=== PATIENT | female | born 1985 | race Caucasian/White ===

== ENCOUNTER 2018-01-06 17:50 | Observation (INO) | payer MEDICAID ==
[2018-01-06 19:36] VITALS: BP_SYST 108
== END 2018-01-06 19:10 | disposition home or self-care (01) ==
LOC: SPU 17:50
PROVIDERS: ADMIT Obstetrics & Gynecology; ATTEND Obstetrics & Gynecology
DX: O62.9 Abnormality of forces of labor, unspecified (principal); Z3A.38 38 weeks gestation of pregnancy
CPT/HCPCS: 59025; 81002; G0378

== ENCOUNTER 2018-01-10 04:51 | Inpatient (IN) | payer MEDICAID ==
[~2018-01-10] VITALS: Ht 160 cm; Wt 75.7 kg
[2018-01-10] MEDS: METHYLERGONOVINE MALEATE 0.2 MG TABLET PO SCH ×2 (04:00→21:00)
[2018-01-10] MEDS ORDERED: OXYTOCIN/0.9 % SODIUM CHLORIDE 1,000 ML IV SCH (05:49)
[2018-01-10] MEDS ORDERED: LR 1,000 ML IV SCH (05:49)
[2018-01-10] MEDS ORDERED: AMPICILLIN SODIUM 2 GM in NS 100 ML IV ONE (06:00)
[2018-01-10] MEDS ORDERED: NALBUPHINE HCL 10 MG/ML AMP IVP PRN (06:00)
[2018-01-10] MEDS ORDERED: NALBUPHINE HCL 10 MG/ML AMP IM PRN (06:00)
[2018-01-10] MEDS ORDERED: AMPICILLIN SODIUM 2 GM VIAL ONE (06:26)
[2018-01-10] MEDS ORDERED: MINERAL OIL 30 ML UDC PO ONE (10:00)
[2018-01-10] MEDS ORDERED: LIDOCAINE PF 1% 30ML(POUR BTL) INJ ONE (10:00)
[2018-01-10 10:10] LABS: BASOPHILS # (AUTO) 0.1 K/uL (0.0-0.2); BASOPHILS % (AUTO) 0.6 % (0.0-2.0); EOSINOPHILS # (AUTO) 0.4 K/uL (0.0-0.4); EOSINOPHILS % (AUTO) 3.7 % (0.0-4.0); HEMATOCRIT 41.1 % (36-48); LYMPHOCYTES # (AUTO) 2.1 K/uL (1.0-5.5); LYMPHOCYTES % (AUTO) 18.4 % (20.5-51.5); MEAN CORPUSCULAR HEMOGLOBIN 33 pg (27-31); MEAN CORPUSCULAR HGB CONC 34 % (32-36); MEAN CORPUSCULAR VOLUME 96 fL (79.0-98.0); MONOCYTES # (AUTO) 0.8 K/uL (0.0-1.0); MONOCYTES % (AUTO) 6.7 % (1.7-9.3); NEUTROPHILS # (AUTO) 7.9 K/uL (1.8-7.7); NEUTROPHILS % (AUTO) 70.6 % (40.0-70.0); PLATELET COUNT (AUTO) 219 K/uL (130-430); RED CELL DISTRIBUTION WIDTH 11.9 % (9.0-15.0); WHITE BLOOD COUNT (AUTO) 11.3 K/uL (4.8-10.8)
[2018-01-10] MEDS: AMPICILLIN SODIUM 1 GM in NS 50 ML IV SCH ×2 (10:27→14:29)
[2018-01-10] MEDS ORDERED: FENT2mCg/mL-ROPIVA0.2%/NS EPID 150 ML EP SCH (11:00)
[2018-01-10] MEDS ORDERED: fentaNYL CITRATE/PF 100 MCG/2 ML AMP ONE (11:25)
[2018-01-10] MEDS ORDERED: ROPIVACAINE 0.2% 100 ML ONE (11:26)
[2018-01-10] MEDS ORDERED: OXYTOCIN 10 UNIT/ML VIAL ONE (14:31)
[2018-01-10] MEDS ORDERED: OXYTOCIN/0.9 % SODIUM CHLORIDE 1,000 ML IV ONE (15:04)
[2018-01-10] MEDS ORDERED: LANOLIN 7 GM OINT. TP PRN (15:15)
[2018-01-10] MEDS ORDERED: WITCH HAZEL LEAF 1 MED.PAD MED.PAD TP PRN (15:15)
[2018-01-10] MEDS ORDERED: DERMOPLAST SPRAY TP PRN (15:15)
[2018-01-10] MEDS ORDERED: ANUSOL 1 EA SUPP.RECT (PREPARATION H) RC PRN (15:15)
[2018-01-10] MEDS ORDERED: HYDROCORTISONE 0.5%, 28.35 GM TOPICAL CREAM TP PRN (15:15)
[2018-01-10] MEDS: OXYCODONE/ACETAMINOPHEN 5-325 TABLET PO PRN ×3 (16:15→20:52)
[2018-01-10] MEDS ORDERED: OXYTOCIN 30 UNIT in LR 1,000 ML IV SCH (17:00)
[2018-01-10] MEDS ORDERED: METHYLERGONOVINE MALEATE 0.2 MG TABLET ONE (17:02)
[2018-01-10] MEDS: IBUPROFEN 800 MG TABLET PO PRN ×2 (17:43→23:47)
[2018-01-10] MEDS ORDERED: TEMAZEPAM 15 MG CAPSULE PO PRN (21:00)
[2018-01-11] MEDS: OXYCODONE/ACETAMINOPHEN 5-325 TABLET PO PRN ×3 (04:46→13:41)
[2018-01-11] MEDS: IBUPROFEN 800 MG TABLET PO PRN ×2 (05:51→12:49)
[2018-01-11 07:09] LABS: HEMATOCRIT 37.8 % (36-48); HEMOGLOBIN 12.7 g/dL (12.0-16.0)
[2018-01-11] MEDS ORDERED: NALBUPHINE HCL 10 MG/ML AMP IM ONE (09:45)
[2018-01-11] MEDS ORDERED: IBUP-1480 PO (10:09)
[2018-01-11] MEDS ORDERED: DOCU-144 PO (10:09)
== END 2018-01-11 15:55 | disposition home or self-care (01) | DRG 560 ==
LOC: SPU 05:23
PROVIDERS: ADMIT Specialist; ATTEND Specialist
PROC: 10E0XZZ Delivery of Products of Conception, External Approach (ICD-10-PCS; principal; 2018-01-10)
PROC: 3E033VJ Introduction of Other Hormone into Peripheral Vein, Percutaneous Approach (ICD-10-PCS; 2018-01-10)
PROC: 0W8NXZZ Division of Female Perineum, External Approach (ICD-10-PCS; 2018-01-10)
PROC: 3E0R3BZ Introduction of Anesthetic Agent into Spinal Canal, Percutaneous Approach (ICD-10-PCS; 2018-01-10)
PROC: 00HU33Z Insertion of Infusion Device into Spinal Canal, Percutaneous Approach (ICD-10-PCS; 2018-01-10)
DX: O80 Encounter for full-term uncomplicated delivery (principal); Z37.0 Single live birth; Z3A.39 39 weeks gestation of pregnancy
CPT/HCPCS: 36415; 81002-TC; 85018-TC; 85025; 86592; 86886; 86900; 86901; J0290; J2001; J2590; J2795; J3010; J7120